=== PATIENT | male | born 1975 | race Caucasian/White ===

== ENCOUNTER 2017-12-12 23:59 | Emergency (ER) | payer BC, OTHER ==
[~2017-12-12] VITALS: Ht 182.9 cm; Wt 84.0 kg
[2017-12-13 00:10] VITALS: BP 122/92
[2017-12-13] MEDS ORDERED: DIPH,PERTUSS(ACELL),TET VAC/PF 0.5 ML IM-VACC ONE ×2 (00:26→00:30)
[2017-12-13] MEDS ORDERED: LIDOCAINE-MPF 1%, 5ML ONE (00:26)
[2017-12-13] MEDS ORDERED: LIDOCAINE-MPF 1%, 5ML INFIL ONE (00:30)
== END 2017-12-13 02:04 | disposition home or self-care (01) ==
LOC: ED 23:59
DX: S06.0X9A Concussion with loss of consciousness of unspecified duration, initial encounter (principal); S01.01XA Laceration without foreign body of scalp, initial encounter; F10.120 Alcohol abuse with intoxication, uncomplicated; Y04.0XXA Assault by unarmed brawl or fight, initial encounter; Y93.89 Activity, other specified; Y99.8 Other external cause status; Y92.89 Other specified places as the place of occurrence of the external cause; Z88.0 Allergy status to penicillin; F32.9 Major depressive disorder, single episode, unspecified
CPT/HCPCS: 12053; 70450; 90471; 90715

== ENCOUNTER 2018-09-26 10:44 | Emergency (ER) | payer SELFPAY ==
[~2018-09-26] VITALS: Ht 182.9 cm; Wt 113.5 kg
[2018-09-26 10:45] VITALS: BP 113/81
[2018-09-26] MEDS ORDERED: ALBUTEROL/IPRATROPIUM 2.5MG/0.5MG, 3 ML ONE (11:21)
[2018-09-26] MEDS ORDERED: ALBUTEROL/IPRATROPIUM 2.5MG/0.5MG, 3 ML NPPB ONE (11:30)
== END 2018-09-26 12:00 | disposition home or self-care (01) ==
LOC: ED 11:50
DX: J06.9 Acute upper respiratory infection, unspecified (principal); J02.9 Acute pharyngitis, unspecified; Z88.0 Allergy status to penicillin; F32.9 Major depressive disorder, single episode, unspecified
CPT/HCPCS: 71046; 87081; 87880; 94640; 99284; J7620